=== PATIENT | female | born 1985 | race Caucasian/White ===

== ENCOUNTER 2019-12-20 08:58 | Emergency (ER) | payer BC ==
[~2019-12-20] VITALS: Ht 162.6 cm; Wt 95.3 kg
[2019-12-20] MEDS ORDERED: IBUPROFEN 600 MG TAB PO STA (09:15)
[2019-12-20] MEDS ORDERED: IBUPROFEN 600 MG TAB ONE (09:49)
--- NOTE | 2019-12-20 10:34 | Diagnostic Imaging Report ---
EXAMINATION: Head and cervical spine CT without contrast. HISTORY: Status post fall, head pain in the back of the head, neck pain COMPARISON: None. TECHNIQUE: Multidetector axial images were obtained without contrast from the foramen magnum to the vertex and through the cervical spine. The images were reconstructed using brain and bone algorithms. Thin section brain images were reformatted into coronal and sagittal planes. Dose modulation, iterative reconstruction, and/or weight based adjustment of the mA/kV was utilized to reduce the radiation dose to as low as reasonably achievable. HEAD CT FINDINGS: Skull/scalp: Small midline parieto-occipital scalp swelling/hematoma without underlying fractures. Parenchyma: Normal. No mass, hemorrhage or CT evidence of acute vascular insult. Brain volume: Normal for age. Ventricles: No hydrocephalus or displacement. Arteries: No density suggestive of thrombus. Dural sinuses: No abnormal density. Extra-axial spaces: No abnormal density. Foramen magnum: No mass, Chiari malformation, or basilar invagination. Sella: No obvious mass. Paranasal/mastoid sinuses: Imaged portions unremarkable. CERVICAL SPINE CT FINDINGS: Alignment:Normal alignment and lordosis. Soft tissues: Normal. Vertebrae: Normal height and density. No acute fracture, infection or neoplasm. Degenerative changes: None. IMPRESSION: Head CT: 1. No acute post traumatic intracranial abnormalities, particularly no hemorrhage. 2. Small parieto-occipital scalp swelling/hematoma without underlying fractures. Cervical spine CT: No acute fractures or dislocations. Note: Acute post traumatic spinal cord, vascular or ligamentous injury cannot adequately be assessed with CT. Signed by: Dr. Kelli Ya M.D. on 12/20/2019 10:30 AM
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
--- NOTE | 2019-12-20 10:48 | Diagnostic Imaging Report ---
FOOT 2 VIEW LT - HOPD - Multiple views HISTORY: ^fall pain COMPARISON: None available. FINDINGS: Bones: No acute displaced fracture. Osseous alignment is within normal limits. Joints: The joint spaces are well-maintained. Soft tissues: The soft tissues appear unremarkable. IMPRESSION: No acute radiographic abnormality. Signed by: Jay Canales MD on 12/20/2019 10:44 AM
[2019-12-20] MEDS ORDERED: CYCLOBENZAPRINE5 MG PO (11:03)
[2019-12-20 11:14] VITALS: BP 136/90
== END 2019-12-20 11:14 | disposition home or self-care (01) ==
LOC: FSED 09:20
DX: S00.83XA Contusion of other part of head, initial encounter (principal); S90.112A Contusion of left great toe without damage to nail, initial encounter; S13.8XXA Sprain of joints and ligaments of other parts of neck, initial encounter; R50.9 Fever, unspecified; V87.8XXA Person injured in other specified noncollision transport accidents involving motor vehicle (traffic), initial encounter; Y92.488 Other paved roadways as the place of occurrence of the external cause; I10 Essential (primary) hypertension; M32.9 Systemic lupus erythematosus, unspecified
CPT/HCPCS: 70450; 72125; 99283